=== PATIENT | female | born 1960 | race Caucasian/White ===

== ENCOUNTER → 2016-10-09 | Outpatient (CLI) | payer MEDICAID | LOC: CIMAGING 11:13 | DX: Z12.31 Encounter for screening mammogram for malignant neoplasm of breast (principal) | CPT/HCPCS: G0202 ==

== ENCOUNTER → 2016-11-21 | Outpatient (CLI) | payer MEDICAID | LOC: BRMIMAGING 08:24 | PROVIDERS: ATTEND Physician Assistant | DX: M25.532 Pain in left wrist (principal) | CPT/HCPCS: 73110-PO ==

== ENCOUNTER → 2017-10-21 | Outpatient (CLI) | payer OTHER | LOC: CIMAGING 15:05 | PROVIDERS: ATTEND Physician Assistant Medical | DX: Z12.31 Encounter for screening mammogram for malignant neoplasm of breast (principal) ==